=== PATIENT | female | born 1965 | race Caucasian/White ===

== ENCOUNTER → 2021-06-07 | Day surgery (SDC) | payer OTHER ==
[~2021-06-07] VITALS: Ht 160 cm; Wt 63.0 kg
[~2021-06-07] MED LIST: DIPH50CA59 PO; IV RINGERS,LACTATED 1000ML 1,000 ML IV SCH; PROPOFOL 10 MG/ML (20ML) VIAL. IV ONE
[2021-06-07 07:57] VITALS: BP 143/78
--- NOTE | 2021-06-07 08:39 | PDOC2 ---
CONSULT Date of Consult Date of Consult DATE: 06/07/21 TIME: 08:36 Reason for Consult Reason for Consult: CRC screening History of Present Illness Reason for Visit: 55 year old Female presents for colorectal cancer screening. Bowel habits are regular without diarrhea or constipation. Weight and appetite are stable. No melena and/or hematochezia is present. Family history is positive for colon poly ps with a sister but negative for colon cancer. She otherwise is without additional complaints. Past Medical History Cardiovascular: No pertinent hx Past Surgical History Past Surgical History: Tonsillectomy, Other (Bladder sling) Family History Family History: Other (sister colon polyps) Social History No ALCOHOL: none Current Medications Current Medications Current Medications Ringer's Solution 1,000 ml @ 30 mls/hr Q24H IV Last administered on 06/07/21at 08:00; Start 06/07/21 at 06:00; Stop 06/07/21 at 17:59 Propofol (Diprivan) 200 mg STK-MED ONCE IV ; Start 06/07/21 at 08:31; Stop 06/07/21 at 08:32; Status DC Active Scripts Active Reported Unisom (Diphenhydramine Hcl) 50 Mg Capsule 50 Mg PO HS Allergies Allergies: Coded Allergies: No Known Drug Allergies (Unverified , 06/07/21) ROS Musculoskeletal: Yes Joint Stiffness Physical Exam General: Alert, Oriented X3 Lungs: Clear to auscultation Heart: Normal S1, Normal S2 Abdomen: Normal bowel sounds, Soft, No tenderness Vitals VITALS Vital Signs Date Time Temp Pulse Resp B/P (MAP) Pulse Ox O2 Delivery O2 Flow Rate FiO2 06/07/21 07:57 98.6 79 18 96 98.6 Assessment/Plan Assessment/Plan CRC screening- is recommended at this time. R/B discussed with patient who is willing to proceed. ROMELIA JOHNSON MD Jun 07, 2021 08:39
[2021-06-07 09:07] VITALS: BP 125/68
== END | disposition home or self-care (01) ==
LOC: ENDOS 07:31
PROVIDERS: ATTEND Internal Medicine Gastroenterology
DX: Z12.11 Encounter for screening for malignant neoplasm of colon (principal); K64.0 First degree hemorrhoids; K63.89 Other specified diseases of intestine; Z79.899 Other long term (current) drug therapy; Z98.890 Other specified postprocedural states; Z83.71 Family history of colonic polyps
CPT/HCPCS: 45378; J2704